=== PATIENT | male | born 1960 | race African-American/Black ===

== ENCOUNTER 2019-01-03 11:55 | Emergency (ER) | payer SELFPAY ==
[~2019-01-03] VITALS: Ht 182.9 cm; Wt 86.4 kg
[2019-01-03 12:05] VITALS: BP 158/73
[2019-01-03] MEDS ORDERED: SITA25 PO (12:15)
[2019-01-03] MEDS ORDERED: GABA-533 PO (12:15)
[2019-01-03] MEDS ORDERED: WARF3TAB29 PO (12:15)
[2019-01-03] MEDS ORDERED: ATOR10TA84 PO (12:15)
[2019-01-03] MEDS ORDERED: HYDR25TA PO (12:15)
[2019-01-03] MEDS ORDERED: HIV MED PO (12:15)
== END 2019-01-03 13:00 | disposition left against medical advice (07) ==
LOC: EMS 11:56
DX: R07.81 Pleurodynia (principal); Z53.21 Procedure and treatment not carried out due to patient leaving prior to being seen by health care provider